=== PATIENT | male | born 1945 | race Caucasian/White ===

== ENCOUNTER 2017-05-15 18:02 | Emergency (ER) | payer MEDICARE, BC ==
[2017-05-15] MEDS ORDERED: CEFTRIAXONE SODIUM 2 GM in 0.9 % SODIUM CHLORIDE 100ML 100 ML IVPB ONE (19:05)
[2017-05-15 19:45] LABS: HEMATOCRIT 35.7 % (42.0-52.0); HEMOGLOBIN 12.1 gm/dl (14.0-18.0); MEAN CELL VOLUME 89.9 fl (81-97); MEAN CORPUSCULAR HGB CONC 33.9 g/dl (32-36); PLATELET COUNT 256 K/uL (130-400); RED BLOOD COUNT 3.97 M/uL (4.40-5.70); RED CELL DISTRIBUTION WIDTH 14.5 % (11.5-14.5); WHITE BLOOD COUNT W/O DIFF 7.2 K/uL (4.2-12.2)
[2017-05-15 19:47] LABS: MEAN CORPUSCULAR HEMOGLOBIN 30.4 pg (27-33)
--- NOTE | 2017-05-15 19:53 | Emergency Department Record ---
History of Present Illness - General Chief complaint: Weakness Stated complaint: SPETIC Time Seen by Provider: 05/15/17 18:42 Source: Patient Mode of Arrival: Wheelchair Limitations: No limitations - History of Present Illness Initial comments: pt arrived here from [facility] today just d/c from hospital w newly dxd esophageal ca , afib and sepsis. he has a pic line in place and was due for abx tonight. they have been unable to establish home health care today despite going to the . they are here only to get his night dose of abx Onset/Timin -: Days(s) Location: Other Severity scale (1-10): 2 Quality: Other Consistency: Constant Improves with: Medication Worsens with: Other Context: Recent illness - [place] Coma Scale Eye Response: (4) Open spontaneously Motor Response: (6) Obeys commands Verbal Response: (5) Oriented [place] Total: 15 - Related Data Home Medications Medication Instructions Recorded Confirmed Last Taken Amlodipine Besylate [Norvasc] 5 mg PO DAILY 05/15/17 05/15/17 05/14/17 Ceftriaxone Sodium [Rocephin] 2 gm IJ DAILY 05/15/17 05/15/17 05/14/17 Duloxetine HCl [Cymbalta] 30 mg PO DAILY 05/15/17 05/15/17 05/14/17 Metoprolol Succinate [Toprol Xl] 50 mg PO DAILY 05/15/17 05/15/17 05/14/17 Sucralfate 1 gm PO QID 05/15/17 05/15/17 05/15/17 Previous Rx's Medication Instructions Recorded Hydrocodone/Acetaminophen [[place] 1 tab PO Q6H PRN #20 tab 11/11/15 5mg/325mg] Allergies Allergy/AdvReac Type Severity Reaction Status Date / Time pneumococcal vaccine Allergy HIVES Verified 05/15/17 18:40 Travel Screening - Travel/Exposure Within Last 30 Days Have you traveled within the last 30 days?: Yes Location Detail:: [place] - Travel/Exposure Within Last Year Have you traveled outside the [place] in the last year?: No - Additonal Travel Details Have you been exposed to anyone with a communicable illness?: No - Travel Symptoms Symptom Screening: None Review of Systems Reviewed: No additional complaints except as noted below Constitutional: Reports: As per HPI. Denies: Chills, Fever, Malaise, Night sweats, Weakness, Weight change Eyes: Reports: As per HPI. Denies: Eye discharge, Eye pain, Photophobia, Vision change ENT: Reports: As per HPI. Denies: Congestion, Dental pain, Ear pain, Epistaxis , Hearing loss, Throat pain Respiratory: Reports: As per HPI. Denies: Cough, Dyspnea, Hemoptysis, Stridor, Wheezes Cardiovascular: Reports: As per HPI. Denies: Arrhythmia, Chest pain, Dyspnea on exertion, Edema, Murmurs, Orthopnea, Palpitations, Paroxysmal nocturnal dyspnea, Rheumatic Fever, Syncope Endocrine: Reports: As per HPI. Denies: Fatigue, Heat or cold intolerance, Polydipsia, Polyuria Gastrointestinal: Reports: As per HPI, Abdominal pain. Denies: Constipation, Diarrhea, Hematemesis, Hematochezia, Melena, Nausea, Vomiting Genitourinary: Reports: As per HPI. Denies: Dysuria, Frequency, Hematuria, Incontinence, Retention, Testicular pain, Testicular mass, Urgency Musculoskeletal: Reports: As per HPI. Denies: Arthralgia, Back pain, Gout, Joint swelling, Myalgia, Neck pain Skin: Reports: As per HPI. Denies: Bruising, Change in color, Change in hair/ nails, Lesions, Pruritus, Rash Neurological: Reports: As per HPI. Denies: Abnormal gait, Confusion, Headache, Numbness, Paresthesias, Seizure, Tingling, Tremors, Vertigo, Weakness Psychiatric: Reports: As per HPI. Denies: Anxiety, Auditory hallucinations, Depression, Homicidal thoughts, Suicidal thoughts, Visual hallucinations Hematological/Lymphatic: Reports: As per HPI. Denies: Anemia, Blood Clots, Easy bleeding, Easy bruising, Swollen glands Past Medical History - SOCIAL HISTORY Smoking Status: Former smoker Alcohol Use: Occasional Drug Use: None - RESPIRATORY Hx Respiratory Disorders: Yes Hx Sleep Apnea: Yes Hx of CPAP: Yes - CARDIOVASCULAR Hx Cardio Disorders: Yes Hx Abnormal EKG: Yes Hx Hypertension: Yes Hx Irregular Heartbeat: Yes Comment:: hypercholesteremia - NEURO Hx Neuro Disorders: No - GI Hx GI Disorders: Yes Hx Reflux: Yes Hx Hiatal Hernia: Yes (hernia-regular) Hx Ulcer: Yes Hx of Polyps: Yes - Hx Genitourinary Disorders: No - ENDOCRINE Hx Endocrine Disorders: No - MUSCULOSKELETAL Hx Musculoskeletal Disorders: Yes Hx Arthritis: Yes - PSYCH Hx Psych Problems: No - HEMATOLOGY/ONCOLOGY Hx Hematology/Oncology Disorders: Yes Hx Cancer: Yes (Esophageal) Family Medical History Any Significant Family History?: No Hx Cancer: Mother Hx Heart Disease: Mother, Brother/Sister Hx Stroke: Father Physical Exam - General General Appearance: Alert, Oriented x3, Cooperative, No acute distress - Head Head exam: Normal inspection - Eye Eye exam: Normal appearance, PERRL, EOMI Pupils: Normal accommodation - ENT ENT exam: Normal exam, Mucous membranes moist, Normal external ear exam, Normal orophraynx Ear exam: Normal external inspection. negative: External canal tenderness Nasal Exam: Normal inspection. negative: Discharge, Sinus tenderness Mouth exam: Normal external inspection, Tongue normal Teeth exam: Normal inspection. negative: Dental caries Throat exam: Normal inspection. negative: Tonsillar erythema, Tonsillar exudate - Neck Neck exam: Normal inspection, Full ROM. negative: Tenderness - Respiratory Respiratory exam: Normal lung sounds bilaterally. negative: Respiratory distress - Cardiovascular Cardiovascular Exam: Regular rate, Normal rhythm, Normal heart sounds - GI/Abdominal GI/Abdominal exam: Soft, Normal bowel sounds. negative: Tenderness - Rectal Rectal exam: Deferred - exam: Deferred - Extremities Extremities exam: Normal inspection, Full ROM, Normal capillary refill. negative: Tenderness - Back Back exam: Reports: Normal inspection, Full ROM. Denies: Muscle spasm, Rash noted, Tenderness - Neurological Neurological exam: Alert, CN II-XII intact, Normal gait, Oriented X3 - Psychiatric Psychiatric exam: Normal affect, Normal mood - Skin Skin exam: Dry, Intact, Normal color, Warm Course Vital Signs 05/15/17 18:05 Temperature 97.9 F Pulse Rate 90 Respiratory 16 Rate Blood Pressure 164/92 Pulse Ox 97 - Reevaluation(s) Reevaluation #1: 05/15/17 20:30 sensitivity was received from [place] and bacteria is sensitive to rocephin Medical Decision Making - Lab Data Result diagrams: 05/15/17 19:30 05/15/17 19:30 Lab Results 05/15/17 Range/Units 19:30 WBC 7.2 (4.2-12.2) K/uL RBC 3.97 L (4.40-5.70) M/uL Hgb 12.1 L (14.0-18.0) gm/dl Hct 35.7 L (42.0-52.0) % MCV 89.9 (81-97) fl MCH 30.4 (27-33) pg MCHC 33.9 (32-36) g/dl RDW 14.5 (11.5-14.5) % Plt Count 256 (130-400) K/uL MPV 10.0 (7.4-10.4) fl Eosinophils % Not Reportable Basophils % Not Reportable Disposition Disposition: Discharge Clinical Impression: Bacteremia Disposition: Home, Self-Care Condition: (1) Good Instructions: Bacteremia (ED) Additional Instructions: follow up with family doctor and [facility] return sooner if worse Forms: Patient Portal Access Quality - Quality Measures Quality Measures: N/A - Blood Pressure Screening Does Patient Have Any of the Following: No Blood Pressure Classification: Hypertensive Reading Systolic Measurement: 164 Diastolic Measurement: 92 Screening for High Blood Pressure: < First Hypertensive BP, F/U Documented > [ [id number]] First Hypertensive Follow-up Interventions: Follow-up with rescreen GT 1 day and LT 4 weeks.
[2017-05-15 20:07] LABS: BLOOD UREA NITROGEN 10 mg/dL (8-23); CREATININE 0.9 mg/dL (0.7-1.2); EST GLOMERULAR FILTRATION RATE > 60 mL/min
[2017-05-15 20:08] LABS: TOTAL PROTEIN 6.9 g/dL (6.6-8.7)
[2017-05-15 20:10] LABS: GLUCOSE,RANDOM 114 mg/dL (74-109)
[2017-05-15 20:12] LABS: ALT/SGPT 33 U/L (<41); AST/SGOT 21 U/L (10.0-50.0)
[2017-05-15 20:13] LABS: ALB/GLOB RATIO 0.9 (1.1-1.8); ALBUMIN 3.3 g/dL (4.0-5.0); ALKALINE PHOSPHATASE 146 U/L (40-129); LIPASE 179 U/L (13-60)
[2017-05-15] MEDS ORDERED: HEPARIN SODIUM FLUSH 100 UNITS/ML SYR 5ML IVP ONE (20:43)
== END 2017-05-15 20:48 | disposition home or self-care (01) ==
LOC: ER 18:02
DX: R78.81 Bacteremia (principal); I48.91 Unspecified atrial fibrillation; I10 Essential (primary) hypertension; F17.210 Nicotine dependence, cigarettes, uncomplicated; C15.9 Malignant neoplasm of esophagus, unspecified
CPT/HCPCS: 99284 ×2; 96374; 83690; 80053; 85027; J1642